=== PATIENT | male | born 1975 | race Hispanic/Latino ===

== ENCOUNTER → 2021-01-03 | Outpatient (CLI) | payer BC ==
[~2021-01-03] MED LIST: IOPAMIDOL 370 MG/ML 200 ML INFUS..BTL INJ ONE; SODIUM CHLORIDE 0.9% 50ML 50 ML ONE
== END ==
LOC: CT 16:19
PROVIDERS: ATTEND Family Medicine
DX: R10.0 Acute abdomen (principal)
CPT/HCPCS: 74177; Q9967

== ENCOUNTER → 2021-01-30 | Outpatient (CLI) | payer BC | LOC: NM 09:46 | PROVIDERS: ATTEND Family Medicine | DX: D13.7 Benign neoplasm of endocrine pancreas (principal) | CPT/HCPCS: 78803; 78804 ==